=== PATIENT | male | born 1990 | race African-American/Black ===

== ENCOUNTER 2017-05-31 15:43 | Emergency (ER) | payer MEDICAID, OTHER ==
[~2017-05-31] VITALS: Ht 175.3 cm; Wt 70.0 kg
[2017-05-31] MEDS ORDERED: ALBUTEROL (15:49)
[2017-05-31] MEDS ORDERED: IPRATROPIUM/ALBUTEROL 0.5-3(2.5)MG/3ML NEB HHN ONE (20:15)
[2017-05-31] MEDS ORDERED: KETOROLAC 30MG/ML VIAL IV ONE (20:45)
[2017-05-31 20:53] VITALS: BP 128/74
== END 2017-05-31 22:34 | disposition home or self-care (01) ==
LOC: ER 20:11
DX: R09.1 Pleurisy (principal); J45.909 Unspecified asthma, uncomplicated; F17.210 Nicotine dependence, cigarettes, uncomplicated
CPT/HCPCS: 71020; 93005; 94640; 96374; 99284; J1885; J7620

== ENCOUNTER 2017-06-02 11:42 | Emergency (ER) | payer MEDICAID ==
[~2017-06-02] VITALS: Ht 175.3 cm; Wt 70.0 kg
[~2017-06-02 11:42] MED LIST: ALBUTEROL
[2017-06-02] MEDS ORDERED: KETOROLAC 30MG/ML VIAL IV STA (11:59)
[2017-06-02 12:22] LABS: HEMATOCRIT. 45.9 % (42.0-52.0); HEMOGLOBIN. 15.4 g/dL (14.0-18.0); MEAN CORPUSCULAR HEMOGLOBIN 29.8 pg (28.0-32.0); MEAN CORPUSCULAR VOLUME 88.7 fL (80.0-94.0); MEAN PLATELET VOLUME 7.9 fl (7.4-10.4); PLATELET 210 x1000/uL (130-400); RED BLOOD CELL COUNT 5.18 mill/uL (4.7-6.1); RED CELL DISTRIBUTION WIDTH 14.2 % (11.6-14.6)
[2017-06-02 12:28] LABS: PARTIAL THROMBOPLASTIN TIME 26.9 sec (23.4-31.0); PROTHROMBIN TIME 10.1 sec (9.4-11.6)
[2017-06-02 12:32] LABS: CARBON DIOXIDE 28 mEq/L (21-32); CHLORIDE 106 mEq/L (98-107)
[2017-06-02 12:36] LABS: TROPONIN I < 0.02 ng/mL (0.00-0.04)
[2017-06-02 12:48] LABS: PLATELET ESTIMATE NORMAL
[2017-06-02 13:21] LABS: CLARITY URINE CLEAR (CLEAR); COLOR URINE YELLOW (YELLOW); GLUCOSE URINE NEGATIVE (NEGATIVE); KETONES URINE NEGATIVE (NEGATIVE); LEUKOCYTE ESTERASE URINE NEGATIVE (NEGATIVE); NITRITE URINE NEGATIVE (NEGATIVE); OCCULT BLOOD URINE NEGATIVE (NEGATIVE); PROTEIN URINE NEGATIVE (NEGATIVE); SPECIFIC GRAVITY URINE 1.026 (1.005-1.030)
[2017-06-02 13:45] LABS: *AMPHETAMINES SCREEN URINE NEGATIVE (NEGATIVE); *BARBITURATES SCREEN URINE NEGATIVE (NEGATIVE); *BENZODIAZEPINES SCREEN URINE NEGATIVE (NEGATIVE); *COCAINE SCREEN URINE NEGATIVE (NEGATIVE); CANNABINOID URINE SCREEN NEGATIVE (NEGATIVE); METHADONE URINE SCREEN NEGATIVE (NEGATIVE); OPIATES URINE SCREEN NEGATIVE (NEGATIVE); PHENCYCLIDINE URINE SCREEN NEGATIVE (NEGATIVE)
[2017-06-02] MEDS ORDERED: OXYCODONE HCL/ACETAMINOPHEN 5/325MG TABLET PO ONE (15:30)
[2017-06-02 16:16] VITALS: BP 115/71
== END 2017-06-02 16:39 | disposition home or self-care (01) ==
LOC: ER 12:41
DX: I31.9 Disease of pericardium, unspecified (principal)
CPT/HCPCS: 36415; 80053; 80305; 81003; 83880; 84484; 85025; 85610; 85730; 93005; 96374; 99285; J1885; Z7610